=== PATIENT | female | born 1945 ===

== ENCOUNTER 2017-09-13 23:23 | Emergency (ER) | payer MEDICARE ==
[~2017-09-13] VITALS: Ht 157.5 cm; Wt 57.7 kg
[2017-09-13 23:31] VITALS: TEMP 97
[2017-09-13 23:58] LABS: BASO # 0.1 (0.0-0.2); BASO % 0.7 % (0.0-2.0); EOS # 0.3 (0.0-0.7); EOS % 3.2 % (0-4.0); GRAN # 4.1 (1.4-6.5); GRAN % 43.3 % (42.2-75.2); HEMATOCRIT 38.1 % (37.0-47.0); HEMOGLOBIN 13.1 g/dl (12.5-16.0); LYMPH # 4.1 (1.2-3.4); LYMPH % 43.1 % (20.0-51.0); MEAN CELL VOLUME 91 fl (80.0-100.0); MEAN CORPUSCULAR HEMOGLOBIN 31 pg (27.0-31.0); MEAN CORPUSCULAR HGB CONC 34 g/dl (33.0-37.0); MEAN PLATELET VOLUME 8.8 fl (7.4-10.4); MONO # 0.9 (0.1-0.6); MONO % 9.4 % (1.7-9.3); PLATELET COUNT 321 K/mm3 (130-400); WHITE BLOOD COUNT 9.6 K/mm3 (4.8-10.8)
[2017-09-14] MEDS ORDERED: SYNTHROID0.075 MG/T PO (00:05)
[2017-09-14] MEDS ORDERED: COZAAR 50MG50 MG/TAB PO ×2 (00:06→01:44)
[2017-09-14] MEDS ORDERED: ZOLOFT 100MG100 MG PO (00:07)
[2017-09-14 00:08] LABS: CALCIUM 10.4 mg/dL (8.4-10.2); CREATININE, serum 0.61 mg/dL (0.52-1.25); POTASSIUM 3.1 mmol/L (3.4-5.0)
[2017-09-14] MEDS ORDERED: ZOCOR 40MG40 MG PO (00:08)
[2017-09-14] MEDS ORDERED: XANAX 0.5MG0.5 MG PO (00:09)
[2017-09-14] MEDS ORDERED: MAGNESIUM250 M1 PO (00:10)
[2017-09-14 00:39] LABS: THYROID STIMULATING HORMONE 13.6 uIU/mL (0.465-4.680)
[2017-09-14] MEDS ORDERED: LEVOXYL0.075 MG PO (01:44)
[2017-09-14] MEDS ORDERED: NORVASC2.5 MG PO (01:44)
[2017-09-14 02:01] VITALS: BP 164/76; PULSE 74
== END 2017-09-14 02:11 | disposition home or self-care (01) ==
LOC: COL.ER 23:23
PROVIDERS: Emergency Medicine
DX: I10 Essential (primary) hypertension (principal); E03.9 Hypothyroidism, unspecified